=== PATIENT | female | born 1990 | race African-American/Black ===

== ENCOUNTER 2018-12-20 15:14 | Inpatient (IN) | payer MEDICAID ==
[~2018-12-20] VITALS: Ht 162.6 cm; Wt 75.3 kg
[2018-12-20] MEDS ORDERED: PNV1TABL50 PO (15:35)
[2018-12-20] MEDS ORDERED: METHYLERGONOVINE MALEATE 0.2 MG/ML IM PRN (15:45)
[2018-12-20] MEDS ORDERED: NALOXONE HCL 0.4 MG/ML 1ML VIAL IM PRN (15:45)
[2018-12-20] MEDS ORDERED: DEXT 5%/LR + PITOCIN 20UNITS/L 1,000 ML IV PRN (15:45)
[2018-12-20] MEDS ORDERED: MISOPROSTOL 100MCG TABLET VG PRN (15:45)
[2018-12-20] MEDS ORDERED: LIDOCAINE HCL 1% 20ML VIAL (Pyxis) INJ INFIL PRN (15:45)
[2018-12-20] MEDS: LACTATED RINGERS 1,000 ML IV SCH ×2 (16:19→20:19)
[2018-12-20] MEDS: MISOPROSTOL 100MCG TABLET VG PRN ×2 (16:44→20:46)
[2018-12-20 16:58] LABS: BASOPHILS % 0.3 % (0.0-2.0); EOSINOPHILS % 0.8 % (0.0-5.0); HEMATOCRIT. 30.7 % (36.0-48.0); HEMOGLOBIN. 9.5 g/dL (12.0-16.0); LYMPHOCYTES % 17.4 % (20.0-50.0); MEAN CORPUSCULAR HEMOGLOBIN 23.5 pg (28.0-32.0); MEAN CORPUSCULAR VOLUME 75.8 fL (81.0-99.0); MEAN PLATELET VOLUME 8.4 fl (7.4-10.4); MONOCYTES % 7.4 % (2.0-8.0); NEUTROPHILS % 74.1 % (40.0-76.0); PLATELET 277 x1000/uL (130-400); RED BLOOD CELL COUNT 4.05 mill/uL (4.2-5.4); RED CELL DISTRIBUTION WIDTH 14.1 % (11.6-14.6)
[2018-12-20 17:14] LABS: CLARITY URINE CLOUDY (CLEAR); COLOR URINE YELLOW (YELLOW); KETONES URINE TRACE (NEGATIVE); LEUKOCYTE ESTERASE URINE 3+ (NEGATIVE); NITRITE URINE NEGATIVE (NEGATIVE); OCCULT BLOOD URINE TRACE (NEGATIVE); PROTEIN URINE NEGATIVE (NEGATIVE); SPECIFIC GRAVITY URINE 1.021 (1.005-1.030); UROBILINOGEN URINE 0.2 E.U./dL (0.2-1.0)
[2018-12-20 17:16] LABS: PARTIAL THROMBOPLASTIN TIME 28.5 sec (23.4-31.0); PROTHROMBIN TIME 9.9 sec (9.6-11.0)
[2018-12-20] MEDS ORDERED: ROPIVACAINE HCL/PF EPIDURAL 200 ML EPI SCH (17:30)
[2018-12-20 18:09] LABS: *AMPHETAMINES SCREEN URINE NEGATIVE (NEGATIVE); *BARBITURATES SCREEN URINE NEGATIVE (NEGATIVE); *BENZODIAZEPINES SCREEN URINE NEGATIVE (NEGATIVE); *COCAINE SCREEN URINE NEGATIVE (NEGATIVE)
[2018-12-20 18:10] LABS: CANNABINOID URINE SCREEN NEGATIVE (NEGATIVE); METHADONE URINE SCREEN NEGATIVE (NEGATIVE); OPIATES URINE SCREEN NEGATIVE (NEGATIVE)
[2018-12-20 18:16] LABS: PHENCYCLIDINE URINE SCREEN NEGATIVE (NEGATIVE)
[2018-12-20 18:24] LABS: HEPATITIS B SURFACE ANTIGEN NEGATIVE
[2018-12-20] MEDS: BUTORPHANOL TARTRATE 2 MG/ML VIAL IV PRN (21:56)
[2018-12-21] MEDS: MISOPROSTOL 100MCG TABLET VG PRN (00:49)
[2018-12-21] MEDS: BUTORPHANOL TARTRATE 2 MG/ML VIAL IV PRN (00:53)
[2018-12-21] MEDS: LACTATED RINGERS 1,000 ML IV SCH ×2 (02:57→09:25)
[2018-12-21] MEDS ORDERED: LIDOCAINE HCL 2%/EPINEPHRINE 1:100,000 20 ML VIAL INFIL ONE (09:22)
[2018-12-21] MEDS ORDERED: ROPIVACAINE HCL/PF EPIDURAL 200 ML EPI ONE (19:37)
[2018-12-21] MEDS ORDERED: FENTANYL CITRATE/PF 50MCG/ML 2ML VIAL ONE (20:46)
[2018-12-21] MEDS ORDERED: LIDOCAINE HCL 1% 20ML VIAL (Pyxis) INJ ONE (23:08)
[2018-12-21] MEDS ORDERED: LIDOCAINE HCL 1% 20ML VIAL (Pyxis) INJ INFIL SCH (23:15)
[2018-12-21] MEDS ORDERED: DEXT 5%/LR + PITOCIN 20UNITS/L 1,000 ML IV SCH (23:36)
[2018-12-21] MEDS ORDERED: BENZOCAINE/LANOLIN/ALOE VERA SPRAY TOP PRN (23:45)
[2018-12-21] MEDS ORDERED: RHO(D) IMMUNE GLOBULIN 300 MCG/SYR IM PRN (23:45)
[2018-12-21] MEDS ORDERED: IBUPROFEN 400MG TABLET PO PRN (23:45)
[2018-12-22 01:30] VITALS: BP 132/93
[2018-12-22 02:00] VITALS: BP 129/66
[2018-12-22 02:30] VITALS: BP 129/61
[2018-12-22] MEDS: IBUPROFEN 800MG TABLET PO PRN ×2 (03:02→16:44)
[2018-12-22] MEDS ORDERED: GUAIFENESIN-DM 200MG-20MG/10ML UDC PO NR (03:30)
[2018-12-22 07:16] LABS: BASOPHILS % 0.1 % (0.0-2.0); EOSINOPHILS % 0.3 % (0.0-5.0); HEMATOCRIT. 27.5 % (36.0-48.0); HEMOGLOBIN. 8.7 g/dL (12.0-16.0); LYMPHOCYTES % 8.8 % (20.0-50.0); MEAN CORPUSCULAR HEMOGLOBIN 24.2 pg (28.0-32.0); MEAN CORPUSCULAR VOLUME 76.3 fL (81.0-99.0); MONOCYTES % 9.7 % (2.0-8.0); NEUTROPHILS % 81.1 % (40.0-76.0); PLATELET 246 x1000/uL (130-400); RED BLOOD CELL COUNT 3.61 mill/uL (4.2-5.4)
[2018-12-22 10:30] VITALS: BP 112/83
[2018-12-22 16:45] VITALS: BP 122/80
[2018-12-22 20:30] VITALS: BP 115/78
[2018-12-23 04:20] VITALS: BP 107/70
[2018-12-23] MEDS: IBUPROFEN 800MG TABLET PO PRN (06:34)
[2018-12-23 08:00] VITALS: BP 112/63
== END 2018-12-23 13:15 | disposition home or self-care (01) | DRG 560 ==
LOC: OBSVTOIN 15:14 → 8 EST LDRP 15:14 → 8EST 12-22 01:30
PROVIDERS: ADMIT Obstetrics & Gynecology; ATTEND Obstetrics & Gynecology
PROC: 10E0XZZ Delivery of Products of Conception, External Approach (ICD-10-PCS; principal; 2018-12-21)
PROC: 0W8NXZZ Division of Female Perineum, External Approach (ICD-10-PCS; 2018-12-21)
PROC: 3E0R3BZ Introduction of Anesthetic Agent into Spinal Canal, Percutaneous Approach (ICD-10-PCS; 2018-12-21)
PROC: 00HU33Z Insertion of Infusion Device into Spinal Canal, Percutaneous Approach (ICD-10-PCS; 2018-12-21)
DX: O36.5930 Maternal care for other known or suspected poor fetal growth, third trimester, not applicable or unspecified (principal); Z37.0 Single live birth; Z3A.39 39 weeks gestation of pregnancy; Z79.899 Other long term (current) drug therapy
CPT/HCPCS: 36415; 80305; 81003; 86592; 86703; 86762; 86850; 86900; 87340; G0378; J0595; J2590; J2795; J3010; J3490

== ENCOUNTER 2022-12-08 14:14 | Observation (INO) | payer MEDICAID ==
[2022-12-08] MEDS ORDERED: PNV1TABL76 MT (16:28)
== END 2022-12-08 16:30 | disposition home or self-care (01) ==
LOC: 8 EST LDRP 14:14
PROVIDERS: ADMIT Obstetrics & Gynecology; ATTEND Obstetrics & Gynecology
DX: O36.5930 Maternal care for other known or suspected poor fetal growth, third trimester, not applicable or unspecified (principal); Z3A.38 38 weeks gestation of pregnancy
CPT/HCPCS: 59025; 76818; 76805; G0378; 99281